=== PATIENT | female | born 1940 | race Two or more races ===

== ENCOUNTER 2021-02-07 07:05 | Emergency (ER) | payer OTHER ==
[~2021-02-07] VITALS: Ht 160 cm; Wt 70.8 kg
[~2021-02-07 07:05] MED LIST: AMITRIPTYLINE H10 MG PO; BISACODYL5 MG PO; COUMADIN10 MG PO; COUMADIN5 MG PO; ENALAPRIL MALEAT5 MG PO; ENDOCET 5/325 T1 TAB PO; HEMATRON DROPS30 ML PO; NEURONTIN250 MG/5 M PO; OXYCONTIN10 MG PO
[2021-02-07] MEDS ORDERED: PROTONIX40 M1 (07:27)
[2021-02-07] MEDS ORDERED: MONTELUKAST SODI4 M1 (07:27)
[2021-02-07] MEDS ORDERED: PRESERVISION A1 EAC1 (07:28)
[2021-02-07] MEDS ORDERED: COZAAR25 MG (07:28)
[2021-02-07] MEDS ORDERED: CRESTOR20 MG (07:28)
[2021-02-07] MEDS ORDERED: ADULT LOW DOSE81 M1 (07:28)
[2021-02-07] MEDS ORDERED: HORIZANT300 MG (07:29)
[2021-02-07] MEDS ORDERED: ZIPSOR25 MG (07:30)
[2021-02-07] MEDS ORDERED: BACLOFEN10 MG (07:30)
== END 2021-02-07 11:28 | disposition home or self-care (01) ==
LOC: ER 07:05
DX: M79.661 Pain in right lower leg (principal)